=== PATIENT | male | born 1960 | race Caucasian/White ===

== ENCOUNTER 2020-12-19 15:55 | Inpatient (IN) | payer MEDICAID ==
[2020-12-21] MEDS: traZODone 50 MG TAB PO SCH ×2 (02:31→21:39)
--- NOTE | 2020-12-21 10:38 | Consultation ---
History of Present Illness - Reason for Consult Consult date: 12/21/20 Medical Management Requesting physician: DEVON POWERS - History of Present Illness 60 YO Male with HTN, GERD, CVA, Vascular Dementia with Behavioral Disturbance, Cerebral Atherosclerosis admitted to [facility] for psychiatric stabilization. Consult placed by Dr. Powers. Patient seen and evaluated in the recreation room. No reported nursing events. Patient denies pain. Past History Past Medical History: GERD, hypertension, stroke Past Surgical History: No surgical history, Other (Reviewed) Social history: single. denies: smoking, alcohol abuse, prescription drug abuse Family history: hypertension Medications and Allergies Allergies Allergy/AdvReac Type Severity Reaction Status Date / Time No Known Drug Allergies Allergy Unknown Verified 12/21/20 02:21 Home Medications Medication Instructions Recorded Confirmed Last Taken Type Clopidogrel [Plavix] 75 mg PO QDAY 12/20/20 12/20/20 Unknown History Divalproex Sprinkle [DepaKOTE 125 mg PO BID 12/20/20 12/20/20 Unknown History SPRINKLE] Memantine [Namenda] 10 mg PO BID 12/20/20 12/20/20 Unknown History NIFEdipine [Afeditab Cr] 30 mg PO DAILY 12/20/20 12/20/20 Unknown History Omeprazole 20 mg PO DAILY 12/20/20 12/20/20 Unknown History Spironolactone [Aldactone] 25 mg PO QDAY 12/20/20 12/20/20 Unknown History Venlafaxine [Effexor] 75 mg PO DAILY 12/20/20 12/20/20 Unknown History cloNIDine-TTS PATCH [Catapres-Tts 0.2 mg TRANSDERMA QWEEK 12/20/20 12/20/20 Unknown History 0.2mg Patch] levETIRAcetam [Keppra TAB] 500 mg PO BID 12/20/20 12/20/20 Unknown History Active Meds: Active Medications Trazodone HCl (Trazodone 50 Mg Tab) 50 mg PO QHS [facility] Last Admin: 12/21/20 02:31 Dose: 50 mg Documented by: Review of Systems Constitutional: no weight loss, no weight gain, no fever, no chills Ears, nose, mouth and throat: no ear pain, no ear discharge, no decreased hearing, no nose pain Cardiovascular: no chest pain, no orthopnea, no rapid/irregular heart beat, no edema, no syncope Respiratory: no cough, no cough with sputum, no excessive sputum, no hemoptysis, no dyspnea on exertion Gastrointestinal: no abdominal pain, no nausea, no diarrhea, no constipation, no hematemesis Genitourinary Male: no dysuria, no flank pain, no discharge, no urinary hesitancy, no nocturia Rectal: no pain, no incontinence, no bleeding Musculoskeletal: no neck pain, no arm numbness/tingling, no shooting leg pain, no leg numbness/tingling Integumentary: no rash, no pruritis, no redness, no sores, no wounds Neurological: no head injury, no transient paralysis, no weakness, no numbness, no seizures, no syncope, no tremors Psychiatric: no anxiety, no change in sleep habits, no insomnia, no hypersomnia, no change in libido, no suicidal ideation Endocrine: no cold intolerance, no polyphagia, no excessive thirst, no polydipsia, no nocturia Hematologic/Lymphatic: no easy bruising Allergic/Immunologic: no urticaria, no allergic rhinitis, no wheezing Exam - Constitutional General appearance: Present: mild distress - EENT Eyes: Present: PERRL ENT: hearing intact, clear oral mucosa - Neck Neck: Present: supple, normal ROM - Respiratory Respiratory effort: normal Respiratory: bilateral: CTA - Cardiovascular Heart Sounds: Present: S1 & S2. Absent: rub, click - Extremities Extremities: pulses symmetrical, No edema Peripheral Pulses: within normal limits - Abdominal General gastrointestinal: Present: soft, non-tender, non-distended, normal bowel sounds Male genitourinary: Present: normal - Integumentary Integumentary: Present: clear, warm, dry - Musculoskeletal Musculoskeletal: gait normal, strength equal bilaterally - Psychiatric Psychiatric: appropriate mood/affect, intact judgment & insight - Neurologic Neurologic: CNII-XII intact, moves all extremities Assessment and Plan - Patient Problems (1) Vascular dementia with behavioral disturbance Current Visit: Yes Status: Acute Plan to address problem: Verbal prompting, verbal redirection, benzodiazepine therapy as clinically indicated. (2) Cerebral atherosclerosis Current Visit: Yes Status: Acute Plan to address problem: Risk factor reduction, antiplatelet therapy, supportive care. (3) Hypertension Current Visit: Yes Status: Acute Qualifiers: Hypertension type: primary hypertension Qualified Code(s): I10 - Essential (primary) hypertension Plan to address problem: Monitor blood pressure every shift, continue medical management (4) GERD (gastroesophageal reflux disease) Current Visit: Yes Status: Acute Qualifiers: Esophagitis presence: without esophagitis Qualified Code(s): K21.9 - Gastro-esophageal reflux disease without esophagitis Plan to address problem: PPI therapy, supportive care (5) Depression Current Visit: Yes Status: Acute Plan to address problem: Continue medical management as per primary team, supportive care.
[2020-12-21] MEDS: levETIRAcetam 500 MG TAB PO SCH (21:40)
[2020-12-21] MEDS: MEMANTINE 10 MG TAB PO SCH (21:40)
[2020-12-21] MEDS: DIVALPROEX SPRINKLE 125 MG CAP PO SCH (21:40)
[2020-12-22] MEDS: CLOPIDOGREL 75 MG TAB PO SCH (09:29)
[2020-12-22] MEDS: levETIRAcetam 500 MG TAB PO SCH ×2 (09:29→22:46)
[2020-12-22] MEDS: NIFEdipine XL 30 MG TAB PO SCH (09:29)
[2020-12-22] MEDS: MEMANTINE 10 MG TAB PO SCH ×2 (09:29→22:46)
[2020-12-22] MEDS: PANTOPRAZOLE 20 MG TAB PO SCH (09:29)
[2020-12-22] MEDS: DIVALPROEX SPRINKLE 125 MG CAP PO SCH ×2 (09:29→22:46)
[2020-12-22] MEDS: SPIRONOLACTONE 25 MG TAB PO SCH (09:41)
[2020-12-22] MEDS ORDERED: NON-FORMULARY EACH (Omeprazole [Omeprazole] 20 MG Capsule.Dr) PO SCH (10:00)
[2020-12-22] MEDS ORDERED: NIFEDIPINE 30 MG PO SCH (10:00)
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
[2020-12-22] MEDS: traZODone 50 MG TAB PO SCH (22:46)
--- NOTE | 2020-12-23 09:59 | Progress Note ---
Subjective Date of service: 12/23/20 Principal diagnosis: Neurocognitive Disorder w/Behaviroal Disturbance Subjective Comment: The patient is lying down in bed asleep. He easily arouses. He is confused. He says he doesn't know where he is. He states he doesn't know why he's in the hospital. He says he didn't sleep too well. He denies any aggressive behavior. He denies SI/HI or hallucinations REVIEW OF SYSTEMS Constitutional: Negative for weight loss ENT: Negative for stridor Respiratory: Negative for cough or hemoptysis All other systems reviewed and are negative MENTAL STATUS EXAMINATION General Appearance and Behavior: Age appropriate, fair hygiene, wearing appropriate clothes, fair eye contact, calm Cooperation: Participating/engaged Psychomotor Behavior: unremarkable and within normal limits Mood: okay Affect and affective range: congruent with mood Thought Process: impaired Thought Content: none Speech: Normal volume, Regular rate and rhythm Suicidal Ideation: Denies Homicidal Ideation: Denies Hallucinations: Denies Impulse Control: impaired Insight and Judgment: Limited insight and poor judgment Memory: Poor Attention: Normal, Orientation: x 1 Assessment and Plan (1) Neurocognitive disorder with behavioral disturbance -F01.50 Current Visit: Yes Status: Acute Treatment Plan Patient admitted for inpatient psychiatric evaluation, medication adjustment and close monitoring The patient's behavior, mood, sleep and appetite will be closely monitored. Patient enrolled in individual and group therapeutic sessions and encouraged to attend. Patient provided with a safe and structured environment. Patient's physical health needs will be addressed by the Hospitalist. Hospitalist Consulted Labs including CBC, CMP, Lipid profile and Hemoglobin A1C levels ordered for baseline reference Social Assessment will be completed and the Legal Internship will work with patient and family to ensure a suitable and safe disposition Medication adjustment will be made as clinically indicated Melatonin 5mg po qhs Usual Wellness Yazidism/Preservation: - Start Trazodone 50 mg po QHS & 50 mg po QHS PRN between 10 PM & 2 AM for insomnia - Start Melatonin 5 mg po QHS to promote circadian rhythm The patient agreed on the treatment plan, understood the risk, benefit, alternative treatment, potential consequence of no treatment, and gave informed consent. Estimated days: 7 Post hospital care: primary care provider, psychiatric provider Case staffed with Dr. Ordonez Medications and Allergies Allergies Allergy/AdvReac Type Severity Reaction Status Date / Time No Known Drug Allergies Allergy Unknown Verified 12/21/20 02:21 Home Medications Medication Instructions Recorded Confirmed Last Taken Type Clopidogrel [Plavix] 75 mg PO QDAY 12/20/20 12/20/20 Unknown History Divalproex Sprinkle [DepaKOTE 125 mg PO BID 12/20/20 12/20/20 Unknown History SPRINKLE] Memantine [Namenda] 10 mg PO BID 12/20/20 12/20/20 Unknown History NIFEdipine [Afeditab Cr] 30 mg PO DAILY 12/20/20 12/20/20 Unknown History Omeprazole 20 mg PO DAILY 12/20/20 12/20/20 Unknown History Spironolactone [Aldactone] 25 mg PO QDAY 12/20/20 12/20/20 Unknown History Venlafaxine [Effexor] 75 mg PO DAILY 12/20/20 12/20/20 Unknown History cloNIDine-TTS PATCH [Catapres-Tts 0.2 mg TRANSDERMA QWEEK 12/20/20 12/20/20 Unknown History 0.2mg Patch] levETIRAcetam [Keppra TAB] 500 mg PO BID 12/20/20 12/20/20 Unknown History Active Meds: Active Medications Clonidine HCl (Clonidine Tts 0.2 Mg/24 Hr Patch) 0.2 mg TD QWEEK [facility] Clopidogrel Bisulfate (Clopidogrel 75 Mg Tab) 75 mg PO QDAY [facility] Last Admin: 12/22/20 09:29 Dose: 75 mg Documented by: Divalproex Sodium (Divalproex Sprinkle 125 Mg Cap) 125 mg PO BID [facility] Last Admin: 12/22/20 22:46 Dose: 125 mg Documented by: Levetiracetam (Levetiracetam 500 Mg Tab) 500 mg PO BID [facility] Last Admin: 12/22/20 22:46 Dose: 500 mg Documented by: Memantine (Memantine 10 Mg Tab) 10 mg PO BID [facility] Last Admin: 12/22/20 22:46 Dose: 10 mg Documented by: Nifedipine (Nifedipine Xl 30 Mg Tab) 30 mg PO QDAY [facility] Last Admin: 12/22/20 09:29 Dose: 30 mg Documented by: Pantoprazole Sodium (Pantoprazole 20 Mg Tab) 20 mg PO QDAY [facility] Last Admin: 12/22/20 09:29 Dose: 20 mg Documented by: Spironolactone (Spironolactone 25 Mg Tab) 25 mg PO QDAY [facility] Last Admin: 12/22/20 09:41 Dose: 25 mg Documented by: Trazodone HCl (Trazodone 50 Mg Tab) 50 mg PO QHS [facility] Last Admin: 12/22/20 22:46 Dose: 50 mg Documented by: Results - Results Labs/Vitals: Last Vital Signs Temp 99.0 F 12/22/20 19:50 Pulse 86 12/22/20 19:50 Resp 18 12/22/20 19:50 BP 140/88 12/22/20 19:50 Pulse Ox 96 12/22/20 19:50
[2020-12-23] MEDS: levETIRAcetam 500 MG TAB PO SCH ×2 (10:24→21:13)
[2020-12-23] MEDS: SPIRONOLACTONE 25 MG TAB PO SCH (10:24)
[2020-12-23] MEDS: PANTOPRAZOLE 20 MG TAB PO SCH (10:24)
[2020-12-23] MEDS: MEMANTINE 10 MG TAB PO SCH ×2 (10:24→21:13)
[2020-12-23] MEDS: DIVALPROEX SPRINKLE 125 MG CAP PO SCH ×2 (10:24→21:13)
[2020-12-23] MEDS: CLOPIDOGREL 75 MG TAB PO SCH (10:24)
[2020-12-23] MEDS: NIFEdipine XL 30 MG TAB PO SCH (10:24)
[2020-12-23] MEDS: traZODone 50 MG TAB PO SCH (21:13)
[2020-12-23] MEDS ORDERED: MELATONIN 5 MG TAB PO PRN (22:00)
[2020-12-24] MEDS: DIVALPROEX SPRINKLE 125 MG CAP PO SCH ×2 (10:19→21:27)
[2020-12-24] MEDS: levETIRAcetam 500 MG TAB PO SCH ×2 (10:19→21:27)
[2020-12-24] MEDS: MEMANTINE 10 MG TAB PO SCH ×2 (10:19→21:27)
[2020-12-24] MEDS: CLOPIDOGREL 75 MG TAB PO SCH (10:19)
[2020-12-24] MEDS: PANTOPRAZOLE 20 MG TAB PO SCH (10:19)
[2020-12-24] MEDS: NIFEdipine XL 30 MG TAB PO SCH (10:20)
[2020-12-24] MEDS: SPIRONOLACTONE 25 MG TAB PO SCH (10:20)
--- NOTE | 2020-12-24 10:22 | Progress Note ---
Subjective Date of service: 12/24/20 Principal diagnosis: Neurocognitive Disorder w/Behaviroal Disturbance Subjective Comment: The patient is lying down in bed asleep. He easily arouses. He is confused. He says he didn't sleep good. He denies SI/HI or hallucinations of any kind. REVIEW OF SYSTEMS Constitutional: Negative for weight loss ENT: Negative for stridor Respiratory: Negative for cough or hemoptysis All other systems reviewed and are negative MENTAL STATUS EXAMINATION General Appearance and Behavior: Age appropriate, fair hygiene, wearing appropriate clothes, fair eye contact, calm Cooperation: Participating/engaged Psychomotor Behavior: unremarkable and within normal limits Mood: okay Affect and affective range: congruent with mood Thought Process: impaired Thought Content: none Speech: Normal volume, Regular rate and rhythm Suicidal Ideation: Denies Homicidal Ideation: Denies Hallucinations: Denies Impulse Control: impaired Insight and Judgment: Limited insight and poor judgment Memory: Poor Attention: Normal, Orientation: x 1 Assessment and Plan (1) Neurocognitive disorder with behavioral disturbance -F01.50 Current Visit: Yes Status: Acute Treatment Plan Patient admitted for inpatient psychiatric evaluation, medication adjustment and close monitoring The patient's behavior, mood, sleep and appetite will be closely monitored. Patient enrolled in individual and group therapeutic sessions and encouraged to attend. Patient provided with a safe and structured environment. Patient's physical health needs will be addressed by the Hospitalist. Hospitalist Consulted Labs including CBC, CMP, Lipid profile and Hemoglobin A1C levels ordered for baseline reference Social Assessment will be completed and the Race Relations Professor will work with patient and family to ensure a suitable and safe disposition Medication adjustment will be made as clinically indicated Melatonin 5mg po qhs prn yesterday Increased Trazodone 75mg po qhs Usual Wellness Lutheran/Preservation: - Start Trazodone 50 mg po QHS & 50 mg po QHS PRN between 10 PM & 2 AM for insomnia - Start Melatonin 5 mg po QHS to promote circadian rhythm The patient agreed on the treatment plan, understood the risk, benefit, alternative treatment, potential consequence of no treatment, and gave informed consent. Estimated days: 7 Post hospital care: primary care provider, psychiatric provider Case staffed with Dr. Ordonez Medications and Allergies Allergies Allergy/AdvReac Type Severity Reaction Status Date / Time No Known Drug Allergies Allergy Unknown Verified 12/21/20 02:21 Home Medications Medication Instructions Recorded Confirmed Last Taken Type Clopidogrel [Plavix] 75 mg PO QDAY 12/20/20 12/20/20 Unknown History Divalproex Sprinkle [DepaKOTE 125 mg PO BID 12/20/20 12/20/20 Unknown History SPRINKLE] Memantine [Namenda] 10 mg PO BID 12/20/20 12/20/20 Unknown History NIFEdipine [Afeditab Cr] 30 mg PO DAILY 12/20/20 12/20/20 Unknown History Omeprazole 20 mg PO DAILY 12/20/20 12/20/20 Unknown History Spironolactone [Aldactone] 25 mg PO QDAY 12/20/20 12/20/20 Unknown History Venlafaxine [Effexor] 75 mg PO DAILY 12/20/20 12/20/20 Unknown History cloNIDine-TTS PATCH [Catapres-Tts 0.2 mg TRANSDERMA QWEEK 12/20/20 12/20/20 Unknown History 0.2mg Patch] levETIRAcetam [Keppra TAB] 500 mg PO BID 12/20/20 12/20/20 Unknown History Active Meds: Active Medications Clonidine HCl (Clonidine Tts 0.2 Mg/24 Hr Patch) 0.2 mg TD [facility] Clopidogrel Bisulfate (Clopidogrel 75 Mg Tab) 75 mg PO QDAY [facility] Last Admin: 12/23/20 10:24 Dose: 75 mg Documented by: Divalproex Sodium (Divalproex Sprinkle 125 Mg Cap) 125 mg PO BID [facility] Last Admin: 12/23/20 21:13 Dose: 125 mg Documented by: Levetiracetam (Levetiracetam 500 Mg Tab) 500 mg PO BID [facility] Last Admin: 12/23/20 21:13 Dose: 500 mg Documented by: Melatonin (Melatonin 5 Mg Tab) 5 mg PO QHS PRN PRN Reason: Sleep Memantine (Memantine 10 Mg Tab) 10 mg PO BID [facility] Last Admin: 12/23/20 21:13 Dose: 10 mg Documented by: Nifedipine (Nifedipine Xl 30 Mg Tab) 30 mg PO QDAY [facility] Last Admin: 12/23/20 10:24 Dose: 30 mg Documented by: Pantoprazole Sodium (Pantoprazole 20 Mg Tab) 20 mg PO QDAY [facility] Last Admin: 12/23/20 10:24 Dose: 20 mg Documented by: Spironolactone (Spironolactone 25 Mg Tab) 25 mg PO QDAY [facility] Last Admin: 12/23/20 10:24 Dose: 25 mg Documented by: Trazodone HCl (Trazodone 50 Mg Tab) 50 mg PO QHS [facility] Last Admin: 12/23/20 21:13 Dose: 50 mg Documented by: Results - Results Labs/Vitals: Last Vital Signs Temp 98.1 F 12/23/20 19:35 Pulse 84 12/23/20 19:35 Resp 16 12/23/20 19:35 BP 118/72 12/23/20 19:35 Pulse Ox 95 12/23/20 19:35
--- NOTE | 2020-12-24 16:07 | Progress Note ---
Assessment and Plan - Patient Problems (1) Vascular dementia with behavioral disturbance Current Visit: Yes Status: Acute Plan to address problem: Verbal prompting, verbal redirection, benzodiazepine therapy as clinically indicated. (2) Cerebral atherosclerosis Current Visit: Yes Status: Acute Plan to address problem: Risk factor reduction, antiplatelet therapy, supportive care. (3) Hypertension Current Visit: Yes Status: Acute Qualifiers: Hypertension type: primary hypertension Qualified Code(s): I10 - Essential (primary) hypertension Plan to address problem: Monitor blood pressure every shift, continue medical management (4) GERD (gastroesophageal reflux disease) Current Visit: Yes Status: Acute Qualifiers: Esophagitis presence: without esophagitis Qualified Code(s): K21.9 - Gastro-esophageal reflux disease without esophagitis Plan to address problem: PPI therapy, supportive care (5) Depression Current Visit: Yes Status: Acute Plan to address problem: Continue medical management as per primary team, supportive care. History Interval history: 60 YO Male with HTN, GERD, CVA, Vascular Dementia with Behavioral Disturbance, Cerebral Atherosclerosis admitted to [facility] for psychiatric stabilization. Patient seen and evaluated in the recreation room. No reported nursing events. Patient denies pain. Hospitalist Physical - Constitutional Vitals: Temp Pulse Resp BP Pulse Ox 98.1 F 80 16 123/75 95 12/23/20 19:35 12/24/20 10:20 12/23/20 19:35 12/24/20 10:20 12/23/20 19:35 General appearance: Present: mild distress - EENT Eyes: Present: PERRL ENT: hearing decreased - Neck Neck: Present: supple - Respiratory Respiratory effort: normal Respiratory: bilateral: CTA - Cardiovascular Rhythm: regular Heart Sounds: Present: S1 & S2 - Extremities Extremities: no ischemia Peripheral Pulses: within normal limits - Abdominal General gastrointestinal: soft, non-tender, non-distended - Integumentary Integumentary: Present: clear, dry - Psychiatric Psychiatric: cooperative - Neurologic Neurologic: CNII-XII intact Results Nogueira/IV: Voiding Method Toilet Active Medications - Current Medications Current Medications: Generic Name Dose Route Start Last Admin Trade Name Freq PRN Reason Stop Dose Admin Clonidine HCl 0.2 mg 12/28/20 10:00 Clonidine Tts 0.2 Mg/24 Hr Patch TD Sa HERMINIA Clopidogrel Bisulfate 75 mg 12/22/20 10:00 12/24/20 10:19 Clopidogrel 75 Mg Tab PO 75 mg QDAY HERMINIA Administration Divalproex Sodium 125 mg 12/21/20 22:00 12/24/20 10:19 Divalproex Sprinkle 125 Mg Cap PO 125 mg BID HERMINIA Administration Levetiracetam 500 mg 12/21/20 22:00 12/24/20 10:19 Levetiracetam 500 Mg Tab PO 500 mg BID HERMINIA Administration Melatonin 5 mg 12/23/20 22:00 Melatonin 5 Mg Tab PO QHS PRN Sleep Memantine 10 mg 12/21/20 22:00 12/24/20 10:19 Memantine 10 Mg Tab PO 10 mg BID HERMINIA Administration Nifedipine 30 mg 12/22/20 10:00 12/24/20 10:20 Nifedipine Xl 30 Mg Tab PO 30 mg QDAY HERMINIA Administration Pantoprazole Sodium 20 mg 12/22/20 10:00 12/24/20 10:19 Pantoprazole 20 Mg Tab PO 20 mg QDAY HERMINIA Administration Spironolactone 25 mg 12/22/20 10:00 12/24/20 10:20 Spironolactone 25 Mg Tab PO 25 mg QDAY HERMINIA Administration Trazodone HCl 75 mg 12/24/20 22:00 Trazodone 50 Mg Tab PO QHS HERMINIA
[2020-12-24] MEDS: traZODone 50 MG TAB PO SCH (21:27)
[2020-12-25] MEDS: NIFEdipine XL 30 MG TAB PO SCH (09:58)
[2020-12-25] MEDS: MEMANTINE 10 MG TAB PO SCH ×2 (09:58→21:20)
[2020-12-25] MEDS: levETIRAcetam 500 MG TAB PO SCH ×2 (09:59→21:20)
[2020-12-25] MEDS: CLOPIDOGREL 75 MG TAB PO SCH (09:59)
[2020-12-25] MEDS: DIVALPROEX SPRINKLE 125 MG CAP PO SCH ×2 (09:59→21:20)
[2020-12-25] MEDS: SPIRONOLACTONE 25 MG TAB PO SCH (09:59)
[2020-12-25] MEDS: PANTOPRAZOLE 20 MG TAB PO SCH (10:00)
--- NOTE | 2020-12-25 10:59 | Discharge Summary ---
Providers - Providers Date of Admission: 12/21/20 01:50 Date of discharge: 12/25/20 Attending physician: DEVON POWERS MD 12/19/20 16:31 Consult to Physician [CONS] Routine Comment: Consulting Provider: SOFIYA ERICKSON Physician Instructions: Reason For Exam: manage existing medical conditions Primary care physician: [employer]ER Hospitalization Reason for admission: depression Admitting Diagnosis: F03.91 - UNSPECIFIED DEMENTIA WITH BEHAVIORAL DISTURBANCE Condition: Stable Hospital course: The patient was provided inpatient psychiatric treatment with safe and supportive care, medication adjustment, adverse effect monitoring, medical evaluations, medical treatments, assessment and psycho-education. The patient's mood, cognition, behavior, moral support are improved and stabilized. St the time of discharge, the patient had no endangering behavior and no debilitating adverse effects. The patient agreed on potential consequences of no treatment and gave informed consent. 12/22 The patient was seen today. He is a/ x 1. He says he doesn't know why he was admitted here. He is a poor historian with poor insight as to his history or what's currently going on with him. He denies any psych meds or history. He tells me he lives alone although he resides in a alf. He denies SI/HI or hallucinations of any kind. 12/23 The patient is lying down in bed asleep. He easily arouses. He is confused. He says he doesn't know where he is. He states he doesn't know why he's in the hospital. He says he didn't sleep too well. He denies any aggressive behavior. He denies SI/HI or hallucinations 12/24 The patient is lying down in bed asleep. He easily arouses. He is confused. He says he didn't sleep good. He denies SI/HI or hallucinations of any kind. 12/25 The patient was seen today. He is calm and cooperative. He denies SI/HI and hallucinations of any kind. He says his night went pretty good. Disposition: 01 HOME / SELF CARE / HOMELESS Time spent for discharge: 35 Allergies/Adverse Reactions: Allergies No Known Drug Allergies Allergy (Verified 12/21/20 02:21) Unknown Vital Signs: Last Vital Signs Temp 98.6 F 12/25/20 07:48 Pulse 76 12/25/20 09:59 Resp 16 12/25/20 07:48 BP 136/85 12/25/20 09:59 Pulse Ox 97 12/25/20 07:48 Core Measure Documentation - Palliative Care Palliative Care/ Comfort Measures: Not Applicable - Core Measures Any of the following diagnoses?: none Exam - Constitutional Vitals: Temp Pulse Resp BP Pulse Ox 98.6 F 76 16 136/85 97 12/25/20 07:48 12/25/20 09:59 12/25/20 07:48 12/25/20 09:59 12/25/20 07:48 General appearance: Present: no acute distress - EENT Eyes: Present: PERRL, EOM intact ENT: hearing intact, clear oral mucosa - Neck Neck: Present: supple, normal ROM - Respiratory Respiratory effort: normal Plan Activity: advance as tolerated Weight Bearing Status: Weight Bear as Tolerated Care Plan Goals: maintain good and stable mental health Plan of Treatment: The patient should be compliant with medications, not to use drugs, and not to drink alcohol. The patient understands that if suicidal ideas, homicidal ideas or any endangering feeling arise, the patient should seek assistance including, but not limited to crisis hotline, and emergency room. Assessment: Neurocognitive Disorder with Behavioral Disturbances Follow up with: PRIMARY CARE, [Primary Care Provider] - 7 Days Prescriptions: traZODone [Desyrel] 75 mg PO QHS #30 tablet Melatonin [Melatonin 5MG TAB] 5 mg PO QHS PRN #30 tablet PRN Reason: Sleep Divalproex Sprinkle [Depakote Sprinkle] 125 mg PO BID #60 cap
--- NOTE | 2020-12-25 15:05 | XRay Report ---
CHEST 1 VIEW 12/25/2020 1:55 PM INDICATION / CLINICAL INFORMATION: r/o TB. COMPARISON: None available. FINDINGS: SUPPORT DEVICES: None. HEART / MEDIASTINUM: No significant abnormality. LUNGS / PLEURA: Mild increased interstitial prominence throughout bilateral lungs. Interstitial proce ss most significant in the perihilar regions. No pneumothorax. Signer Name: Teodoro King MD Signed: 12/25/2020 3:00 PM Workstation Name: [id number]
[2020-12-25] MEDS: traZODone 50 MG TAB PO SCH (21:20)
[2020-12-26] MEDS: DIVALPROEX SPRINKLE 125 MG CAP PO SCH (09:43)
[2020-12-26] MEDS: SPIRONOLACTONE 25 MG TAB PO SCH (09:43)
[2020-12-26] MEDS: NIFEdipine XL 30 MG TAB PO SCH (09:43)
[2020-12-26] MEDS: PANTOPRAZOLE 20 MG TAB PO SCH (09:44)
[2020-12-26] MEDS: MEMANTINE 10 MG TAB PO SCH (09:44)
[2020-12-26] MEDS: levETIRAcetam 500 MG TAB PO SCH (09:44)
[2020-12-26] MEDS: CLOPIDOGREL 75 MG TAB PO SCH (09:44)
[2020-12-26 09:47] VITALS: BP 136/83
--- NOTE | 2020-12-26 09:55 | Discharge Summary ---
Providers - Providers Date of Admission: 12/21/20 01:50 Date of discharge: 12/26/20 Attending physician: DEVON POWERS MD 12/19/20 16:31 Consult to Physician [CONS] Routine Comment: Consulting Provider: SOFIYA ERICKSON Physician Instructions: Reason For Exam: manage existing medical conditions Primary care physician: [employer] Hospitalization Reason for admission: Depression Admitting Diagnosis: F03.91 - UNSPECIFIED DEMENTIA WITH BEHAVIORAL DISTURBANCE Condition: Stable Hospital course: The patient was provided inpatient psychiatric treatment with safe and supportive care, medication adjustment, adverse effect monitoring, medical evaluations, medical treatments, assessment and psycho-education. The patient's mood, cognition, behavior, moral support are improved and stabilized. St the time of discharge, the patient had no endangering behavior and no debilitating adverse effects. The patient agreed on potential consequences of no treatment and gave informed consent. 12/22 The patient was seen today. He is a/ x 1. He says he doesn't know why he was admitted here. He is a poor historian with poor insight as to his history or what's currently going on with him. He denies any psych meds or history. He tells me he lives alone although he resides in a [facility]. He denies SI/HI or hallucinations of any kind. 12/23 The patient is lying down in bed asleep. He easily arouses. He is confused. He says he doesn't know where he is. He states he doesn't know why he's in the hospital. He says he didn't sleep too well. He denies any aggressive behavior. He denies SI/HI or hallucinations 12/24 The patient is lying down in bed asleep. He easily arouses. He is confused. He says he didn't sleep good. He denies SI/HI or hallucinations of any kind. 12/25 The patient was seen today. He is calm and cooperative. He denies SI/HI and hallucinations of any kind. He says his night went pretty good. 12/26 The patient is calm, and cooperative. He asks was he going back to the [facility] today. He denies SI/HI or hallucinations. He did not leave yesterday due to transportation issues. Disposition: HOME / SELF CARE / HOMELESS Time spent for discharge: 35 Allergies/Adverse Reactions: Allergies No Known Drug Allergies Allergy (Verified 12/21/20 02:21) Unknown Vital Signs: Last Vital Signs Temp 98.7 F 12/25/20 21:00 Pulse 91 H 12/26/20 09:43 Resp 18 12/25/20 21:00 BP 136/83 12/26/20 09:43 Pulse Ox 97 12/25/20 21:00 Core Measure Documentation - Palliative Care Palliative Care/ Comfort Measures: Not Applicable - Core Measures Any of the following diagnoses?: none Exam - Constitutional Vitals: Temp Pulse Resp BP Pulse Ox 98.7 F 91 H 18 136/83 97 12/25/20 21:00 12/26/20 09:43 12/25/20 21:00 12/26/20 09:43 12/25/20 21:00 General appearance: Present: no acute distress - EENT Eyes: Present: PERRL, EOM intact ENT: hearing intact, clear oral mucosa - Neck Neck: Present: supple, normal ROM - Respiratory Respiratory effort: normal Plan Activity: advance as tolerated Weight Bearing Status: Weight Bear as Tolerated Care Plan Goals: maintain good and stable mental health Plan of Treatment: The patient should be compliant with medications, not to use drugs, and not to drink alcohol. The patient understands that if suicidal ideas, homicidal ideas or any endangering feeling arise, the patient should seek assistance including, but not limited to crisis hotline, and emergency room. Assessment: Neurocognitive Disorder with Behavioral Disturbances Follow up with: PRIMARY CARE, [Primary Care Provider] - 7 Days Prescriptions: traZODone [Desyrel] 75 mg PO QHS #30 tablet Melatonin [Melatonin 5MG TAB] 5 mg PO QHS PRN #30 tablet PRN Reason: Sleep Divalproex Sprinkle [Depakote Sprinkle] 125 mg PO BID #60 cap
[2020-12-28] MEDS ORDERED: cloNIDine TTS 0.2 MG/24 HR PATCH TD SCH (10:00)
== END 2020-12-26 10:30 | DRG 884 ==
LOC: UNDOADMIN 15:55 → 3A 15:55 → 5A 12-21 01:50
PROVIDERS: ADMIT Psychiatry & Neurology Psychiatry; ATTEND Psychiatry & Neurology Psychiatry
DX: F01.51 Vascular dementia, unspecified severity, with behavioral disturbance (principal); I67.2 Cerebral atherosclerosis; K21.9 Gastro-esophageal reflux disease without esophagitis; I10 Essential (primary) hypertension; Z20.822 Contact with and (suspected) exposure to COVID-19
CPT/HCPCS: 71045; G0378; U0003